=== PATIENT | female | born 2000 | race Caucasian/White ===

== ENCOUNTER 2022-06-07 19:09 | Emergency (ER) | payer OTHER ==
[2022-06-07 19:15] VITALS: BP 142/80; PULSE 96; RESP 18; TEMP 98.1; BMI 30.1
[2022-06-07] MEDS ORDERED: IBUPROFEN 600 MG TABLET (FP) PO ONE ×2 (20:42→21:00)
== END 2022-06-07 22:11 | disposition home or self-care (01) ==
LOC: JERFT 19:09 → JER 19:09 → JERFT 22:11
DX: M54.50 Low back pain, unspecified (principal); V43.52XA Car driver injured in collision with other type car in traffic accident, initial encounter
CPT/HCPCS: 99283-25